=== PATIENT | male | born 1995 | race African-American/Black ===

== ENCOUNTER 2017-04-01 11:46 | Inpatient (IN) | payer MEDICAID ==
[~2017-04-01] VITALS: Ht 175.3 cm; Wt 58.0 kg
[~2017-04-01 11:46] MED LIST: ASPI-496 PO; ATOR20TA PO; CARV12.52 PO; CARV3.1212 PO; FERR325T20 PO; FURO20TA3 PO; LISI2.5T PO; OMEP-110 PO; RIVA20TA PO; SPIR25TA3 PO; THIA100T10 PO; [UNRECOGNIZED DRUG - CODE] IV
[2017-04-01] MEDS ORDERED: ASPIRIN 81 MG TABLET CHEW ONE (13:20)
[2017-04-01] MEDS ORDERED: ASPIRIN 81 MG TABLET CHEW PO ONE (13:30)
[2017-04-01] MEDS ORDERED: SODIUM CHLORIDE FLUSH 10ML SYR IVF ONE (13:30)
[2017-04-01] MEDS ORDERED: MILR20PI IV (13:51)
[2017-04-01] MEDS ORDERED: POTA10CA PO (13:51)
[2017-04-01] MEDS ORDERED: SPIR100T2 PO (13:51)
[2017-04-01 14:35] LABS: ASPARTATE AMINO TRANSFERASE 56 U/L (15-37); BLOOD UREA NITROGEN 70 mg/dL (7-18)
[2017-04-01 14:44] LABS: ANISOCYTOSIS 1+; MICROCYTOSIS 1+
[2017-04-01 14:45] LABS: IS PT STATUS REG ER OR PRE ER? YES
[2017-04-01 14:46] LABS: OVALOCYTES 1+; POIKILOCYTOSIS 1+; POLYCHROMASIA 1+; TARGET CELLS 1+
[2017-04-01 15:52] VITALS: BP 95/60
[2017-04-01] MEDS ORDERED: PHARMACY MAY ADJ FOR RENAL FX MC PRN (16:00)
[2017-04-01] MEDS ORDERED: VANCOMYCIN PER PHARMACY MC PRN (16:00)
[2017-04-01] MEDS ORDERED: TEMAZEPAM 15 MG CAPSULE PO PRN (16:30)
[2017-04-01] MEDS ORDERED: VANCOMYCIN 1,500 MG in SODIUM CHLORIDE 0.9% 250 ML IV ONE (16:30)
[2017-04-01] MEDS ORDERED: PHARMACOKINETIC MONITORING MC PRN (16:30)
[2017-04-01] MEDS ORDERED: LORazepam 2 MG/ML, 1ML IVPush PRN (16:30)
[2017-04-01] MEDS ORDERED: DOCUSATE 100 MG CAPSULE PO PRN (16:30)
[2017-04-01] MEDS ORDERED: PHARMACOKINETIC CONSULTATION MC ONE (16:30)
[2017-04-01] MEDS ORDERED: ACETAMINOPHEN 325 MG TABLET PO PRN (16:30)
[2017-04-01] MEDS ORDERED: PHARMACY INSTRUCTION MC PRN (18:00)
[2017-04-01 19:58] VITALS: BP 95/67
[2017-04-01] MEDS: DOBUTAMINE/D5W PMX 250 ML IV SCH (20:20)
[2017-04-01] MEDS: ONDANSETRON 2MG/ML, 2ML IVPush PRN (20:20)
[2017-04-01] MEDS: morphine SULFATE 10 MG/ML, 1ML IVPush PRN (20:31)
[2017-04-01 21:05] LABS: IS PT STATUS REG ER OR PRE ER? NO
[2017-04-02 01:58] VITALS: BP 105/69
[2017-04-02 03:08] LABS: ASPARTATE AMINO TRANSFERASE 43 U/L (15-37); BLOOD UREA NITROGEN 70 mg/dL (7-18)
[2017-04-02 03:12] LABS: IS PT STATUS REG ER OR PRE ER? NO
[2017-04-02] MEDS ORDERED: METOLAZONE 2.5 MG TABLET PO SCH (07:30)
[2017-04-02 07:50] VITALS: BP 93/66
[2017-04-02] MEDS ORDERED: RIVAROXABAN 15 MG TABLET PO SCH (09:00)
[2017-04-02] MEDS ORDERED: POTASSIUM CHLORIDE 20 MEQ TAB.ER.PRT PO ONE (09:00)
[2017-04-02] MEDS ORDERED: RIVAROXABAN 20 MG TABLET PO SCH (09:00)
[2017-04-02] MEDS ORDERED: FUROSEMIDE 100 MG/10 ML IV ONE (09:00)
[2017-04-02 09:44] VITALS: BP 124/78
[2017-04-02] MEDS: FUROSEMIDE 20 MG/2 ML IV SCH (10:00)
[2017-04-02] MEDS: ONDANSETRON 2MG/ML, 2ML IVPush PRN ×2 (11:14→17:49)
[2017-04-02] MEDS: morphine SULFATE 10 MG/ML, 1ML IVPush PRN (11:18)
[2017-04-02 11:19] VITALS: BP 100/70
[2017-04-02] MEDS: DOBUTAMINE/D5W PMX 250 ML IV SCH (12:40)
[2017-04-02 13:44] VITALS: BP 101/71
[2017-04-02] MEDS: RIVAROXABAN 10 MG TABLET PO SCH (17:44)
[2017-04-02 19:00] VITALS: BP 98/66
[2017-04-03] MEDS: morphine SULFATE 10 MG/ML, 1ML IVPush PRN ×3 (00:43→22:32)
[2017-04-03 02:19] VITALS: BP 101/71
[2017-04-03 06:49] LABS: ASPARTATE AMINO TRANSFERASE 40 U/L (15-37); BLOOD UREA NITROGEN 81 mg/dL (7-18); TOTAL IRON BINDING CAPACITY 286 mcg/dL (250-450)
[2017-04-03 06:52] VITALS: BP 103/73
[2017-04-03] MEDS: DOBUTAMINE/D5W PMX 250 ML IV SCH (07:57)
[2017-04-03] MEDS: METOLAZONE 5 MG TABLET PO SCH (07:58)
[2017-04-03] MEDS: FUROSEMIDE 20 MG/2 ML IV SCH ×4 (09:00→22:21)
[2017-04-03] MEDS: ALBUMIN HUMAN 25% 100 ML IV SCH ×3 (09:54→22:00)
[2017-04-03] MEDS: MULTIVITAMINS WITH IRON TABLET PO SCH (09:54)
[2017-04-03] MEDS: IRON SUCROSE COMPLEX 100MG/5ML IV SCH (09:54)
[2017-04-03] MEDS ORDERED: FUROSEMIDE 40 MG/4 ML IV ONE (11:00)
[2017-04-03 13:38] VITALS: BP 98/66
[2017-04-03] MEDS: RIVAROXABAN 10 MG TABLET PO SCH (17:28)
[2017-04-03 19:25] VITALS: BP 96/67
[2017-04-04 01:02] VITALS: BP 96/67
[2017-04-04] MEDS: DOBUTAMINE/D5W PMX 250 ML IV SCH ×2 (02:53→23:19)
[2017-04-04] MEDS: ALBUMIN HUMAN 25% 100 ML IV SCH (02:53)
[2017-04-04 07:13] VITALS: BP 105/73
[2017-04-04] MEDS: morphine SULFATE 10 MG/ML, 1ML IVPush PRN ×4 (08:15→23:30)
[2017-04-04] MEDS: MULTIVITAMINS WITH IRON TABLET PO SCH (08:16)
[2017-04-04] MEDS: METOLAZONE 5 MG TABLET PO SCH (08:16)
[2017-04-04] MEDS: FUROSEMIDE 20 MG/2 ML IV SCH ×2 (08:17→20:54)
[2017-04-04] MEDS: IRON SUCROSE COMPLEX 100MG/5ML IV SCH (08:17)
[2017-04-04] MEDS: LINEZOLID PMX 600MG/300ML 300 ML IV SCH (12:04)
[2017-04-04 13:18] VITALS: BP 108/74
[2017-04-04] MEDS: RIVAROXABAN 10 MG TABLET PO SCH (16:28)
[2017-04-04 19:16] VITALS: BP 101/69
[2017-04-05 00:43] VITALS: BP 104/70
[2017-04-05] MEDS: LINEZOLID PMX 600MG/300ML 300 ML IV SCH ×2 (02:09→12:45)
[2017-04-05] MEDS: morphine SULFATE 10 MG/ML, 1ML IVPush PRN ×3 (02:14→22:07)
[2017-04-05 06:22] LABS: BLOOD UREA NITROGEN 85 mg/dL (7-18)
[2017-04-05 06:25] LABS: BLOOD UREA NITROGEN 85 mg/dL (7-18)
[2017-04-05 07:10] VITALS: BP 103/68
[2017-04-05 07:32] LABS: DIFF TOTAL CELLS COUNTED 100 CELL DIFF
[2017-04-05 07:48] LABS: VERIFY COUNTS? YES
[2017-04-05 07:49] LABS: ANISOCYTOSIS 1+; MICROCYTOSIS 2+; OVALOCYTES 1+; POIKILOCYTOSIS 1+; POLYCHROMASIA 1+
[2017-04-05] MEDS: METOLAZONE 5 MG TABLET PO SCH (08:45)
[2017-04-05] MEDS: IRON SUCROSE COMPLEX 100MG/5ML IV SCH (08:46)
[2017-04-05] MEDS: MULTIVITAMINS WITH IRON TABLET PO SCH (08:46)
[2017-04-05] MEDS: FUROSEMIDE 20 MG/2 ML IV SCH ×2 (08:46→22:58)
[2017-04-05 14:38] VITALS: BP 91/63
[2017-04-05] MEDS: DOBUTAMINE/D5W PMX 250 ML IV SCH (18:37)
[2017-04-05 18:54] VITALS: BP 101/69
[2017-04-05] MEDS: RIVAROXABAN 10 MG TABLET PO SCH (22:05)
[2017-04-05] MEDS ORDERED: POTASSIUM CHLORIDE 10% 40 MEQ/30 ML UDC PO ONE (23:00)
[2017-04-06] MEDS: LINEZOLID PMX 600MG/300ML 300 ML IV SCH ×2 (00:28→12:30)
[2017-04-06 02:13] VITALS: BP 86/42
[2017-04-06 02:31] VITALS: BP 96/59
[2017-04-06 05:50] LABS: BLOOD UREA NITROGEN 85 mg/dL (7-18)
[2017-04-06 06:24] LABS: DIFF TOTAL CELLS COUNTED 100 CELL DIFF
[2017-04-06 06:26] LABS: ANISOCYTOSIS 1+; MICROCYTOSIS 2+; POLYCHROMASIA 1+; TARGET CELLS 1+; VERIFY COUNTS? YES
[2017-04-06 06:27] LABS: ECHINOCYTES 1+
[2017-04-06 06:28] LABS: OVALOCYTES 1+
[2017-04-06 06:31] LABS: SCHISTOCYTES 1+
[2017-04-06] MEDS: morphine SULFATE 10 MG/ML, 1ML IVPush PRN ×4 (06:36→21:16)
[2017-04-06 08:02] VITALS: BP 95/66
[2017-04-06] MEDS: METOLAZONE 5 MG TABLET PO SCH (09:50)
[2017-04-06] MEDS: MULTIVITAMINS WITH IRON TABLET PO SCH (09:51)
[2017-04-06] MEDS: IRON SUCROSE COMPLEX 100MG/5ML IV SCH (09:54)
[2017-04-06] MEDS: FUROSEMIDE 20 MG/2 ML IV SCH ×2 (10:15→21:05)
[2017-04-06] MEDS ORDERED: POLYETHYLENE GLYCOL 17 GM PACKET NG ONE (10:30)
[2017-04-06] MEDS: DOBUTAMINE/D5W PMX 250 ML IV SCH (11:16)
[2017-04-06 14:24] VITALS: BP 101/67
[2017-04-06] MEDS: RIVAROXABAN 10 MG TABLET PO SCH (18:01)
[2017-04-06 20:54] VITALS: BP 101/61
[2017-04-07] MEDS: LINEZOLID PMX 600MG/300ML 300 ML IV SCH ×2 (00:37→12:30)
[2017-04-07 02:58] VITALS: BP 91/61
[2017-04-07] MEDS: DOBUTAMINE/D5W PMX 250 ML IV SCH ×2 (04:36→22:28)
[2017-04-07] MEDS: METOLAZONE 5 MG TABLET PO SCH (07:30)
[2017-04-07 07:48] LABS: BLOOD UREA NITROGEN 86 mg/dL (7-18)
[2017-04-07] MEDS: MULTIVITAMINS WITH IRON TABLET PO SCH (09:00)
[2017-04-07] MEDS: FUROSEMIDE 20 MG/2 ML IV SCH ×2 (09:00→21:00)
[2017-04-07] MEDS: morphine SULFATE 10 MG/ML, 1ML IVPush PRN ×2 (15:27→23:02)
[2017-04-07] MEDS: RIVAROXABAN 10 MG TABLET PO SCH (17:00)
[2017-04-07] MEDS ORDERED: POTASSIUM CHLORIDE 10% 40 MEQ/30 ML UDC PO ONE (21:30)
[2017-04-08] MEDS: LINEZOLID PMX 600MG/300ML 300 ML IV SCH ×2 (00:30→18:11)
[2017-04-08] MEDS: morphine SULFATE 10 MG/ML, 1ML IVPush PRN ×4 (05:20→22:11)
[2017-04-08] MEDS: METOLAZONE 5 MG TABLET PO SCH (07:30)
[2017-04-08 08:20] VITALS: BP 92/63
[2017-04-08] MEDS: FUROSEMIDE 20 MG/2 ML IV SCH ×2 (09:00→22:05)
[2017-04-08] MEDS: MULTIVITAMINS WITH IRON TABLET PO SCH (09:00)
[2017-04-08] MEDS ORDERED: FUROSEMIDE 20 MG/2 ML IV ONE (09:00)
[2017-04-08] MEDS: POTASSIUM CHLORIDE 20 MEQ TAB.ER.PRT PO SCH ×3 (12:30→22:38)
[2017-04-08] MEDS ORDERED: POTASSIUM CHLORIDE 20 MEQ TAB.ER.PRT ONE (14:10)
[2017-04-08 16:25] VITALS: BP 100/65
[2017-04-08] MEDS: RIVAROXABAN 10 MG TABLET PO SCH (18:12)
[2017-04-08 20:40] VITALS: BP 103/62
[2017-04-08] MEDS: DOBUTAMINE/D5W PMX 250 ML IV SCH (22:06)
[2017-04-08] MEDS ORDERED: POTASSIUM CHLORIDE 20 MEQ PACKET PO ONE (23:00)
[2017-04-09] MEDS: morphine SULFATE 10 MG/ML, 1ML IVPush PRN ×5 (01:30→22:14)
[2017-04-09 02:00] VITALS: BP 128/88
[2017-04-09] MEDS: LINEZOLID PMX 600MG/300ML 300 ML IV SCH ×2 (05:27→16:41)
[2017-04-09 07:31] VITALS: BP 100/67
[2017-04-09 08:10] LABS: BLOOD UREA NITROGEN 92 mg/dL (7-18)
[2017-04-09] MEDS ORDERED: POTASSIUM CHLORIDE 20 MEQ TAB.ER.PRT PO SCH ×2 (09:00→09:30)
[2017-04-09] MEDS: MULTIVITAMINS WITH IRON TABLET PO SCH (09:30)
[2017-04-09 09:58] LABS: DIFF TOTAL CELLS COUNTED 100 CELL DIFF
[2017-04-09] MEDS ORDERED: POTASSIUM CHLORIDE 20 MEQ TAB.ER.PRT PO ONE (10:00)
[2017-04-09 10:02] LABS: VERIFY COUNTS? YES
[2017-04-09 10:03] LABS: ANISOCYTOSIS 2+; HYPOCHROMIA 2+; MICROCYTOSIS 1+; POLYCHROMASIA 2+; TARGET CELLS 2+
[2017-04-09 10:04] LABS: OVALOCYTES 1+; SCHISTOCYTES 1+
[2017-04-09] MEDS ORDERED: POTASSIUM CHLORIDE 20 MEQ PACKET PO SCH (10:24)
[2017-04-09] MEDS: FUROSEMIDE 20 MG/2 ML IV SCH ×2 (10:58→20:19)
[2017-04-09] MEDS: METOLAZONE 5 MG TABLET PO SCH (10:59)
[2017-04-09 11:25] LABS: DIFF TOTAL CELLS COUNTED 100 CELL DIFF
[2017-04-09 11:26] LABS: ANISOCYTOSIS 2+; HYPOCHROMIA 1+; MICROCYTOSIS 2+; OVALOCYTES 1+; TARGET CELLS 1+; VERIFY COUNTS? YES
[2017-04-09] MEDS: DOBUTAMINE/D5W PMX 250 ML IV SCH (13:17)
[2017-04-09 15:00] VITALS: BP 100/69
[2017-04-09] MEDS: POTASSIUM CHLORIDE 20 MEQ PACKET PO SCH ×2 (15:28→20:20)
[2017-04-09] MEDS: RIVAROXABAN 10 MG TABLET PO SCH (16:41)
[2017-04-09 19:21] VITALS: BP 94/64
[2017-04-09] MEDS ORDERED: SPIRONOLACTONE 25 MG TABLET PO SCH (21:00)
[2017-04-09 22:10] VITALS: BP 101/64
[2017-04-10 01:52] VITALS: BP 109/71
[2017-04-10] MEDS: morphine SULFATE 10 MG/ML, 1ML IVPush PRN ×5 (02:59→20:41)
[2017-04-10] MEDS: LINEZOLID PMX 600MG/300ML 300 ML IV SCH ×2 (05:03→16:40)
[2017-04-10 06:34] LABS: DIFF TOTAL CELLS COUNTED 200 CELL DIFF; VERIFY COUNTS? YES
[2017-04-10 06:35] LABS: ANISOCYTOSIS 2+; HYPOCHROMIA 1+; MICROCYTOSIS 1+
[2017-04-10 06:36] LABS: OVALOCYTES 1+; POLYCHROMASIA 1+; TARGET CELLS 1+
[2017-04-10 07:15] LABS: BLOOD UREA NITROGEN 86 mg/dL (7-18)
[2017-04-10 07:19] LABS: ASPARTATE AMINO TRANSFERASE 40 U/L (15-37)
[2017-04-10] MEDS: METOLAZONE 5 MG TABLET PO SCH (07:46)
[2017-04-10] MEDS: FUROSEMIDE 20 MG/2 ML IV SCH ×2 (07:46→20:35)
[2017-04-10] MEDS: POTASSIUM CHLORIDE 20 MEQ PACKET PO SCH ×3 (07:46→21:57)
[2017-04-10] MEDS: MULTIVITAMINS WITH IRON TABLET PO SCH (07:46)
[2017-04-10 07:51] VITALS: BP 99/64
[2017-04-10] MEDS ORDERED: METHYLNALTREXONE 12 MG/0.6 ML SQ ONE (08:00)
[2017-04-10] MEDS ORDERED: MAGNESIUM SULFATE PMX 2GM/50ML 50 ML IV ONE (08:00)
[2017-04-10] MEDS: SPIRONOLACTONE 50 MG TABLET PO SCH (09:00)
[2017-04-10] MEDS: DOBUTAMINE/D5W PMX 250 ML IV SCH (09:01)
[2017-04-10] MEDS: DEXTROSE 5% IV SCH (10:44)
[2017-04-10] MEDS: DOBUTAMINE IV SCH (10:44)
[2017-04-10 11:35] LABS: ASPARTATE AMINO TRANSFERASE 33 U/L (15-37); BLOOD UREA NITROGEN 92 mg/dL (7-18)
[2017-04-10 14:50] VITALS: BP 100/69
[2017-04-10] MEDS: RIVAROXABAN 10 MG TABLET PO SCH (17:59)
[2017-04-10 18:52] VITALS: BP 91/65
[2017-04-10 21:07] LABS: ANISOCYTOSIS 2+; POLYCHROMASIA 2+
[2017-04-10 21:08] LABS: TARGET CELLS 2+
[2017-04-10 21:14] LABS: DIFF TOTAL CELLS COUNTED 100 CELL DIFF
[2017-04-10 21:22] LABS: VERIFY COUNTS? YES
[2017-04-11 01:52] VITALS: BP 97/66
[2017-04-11] MEDS: morphine SULFATE 10 MG/ML, 1ML IVPush PRN ×5 (02:05→21:32)
[2017-04-11] MEDS: LINEZOLID PMX 600MG/300ML 300 ML IV SCH ×2 (05:07→18:03)
[2017-04-11 05:48] LABS: BLOOD UREA NITROGEN 85 mg/dL (7-18)
[2017-04-11 05:58] LABS: DIFF TOTAL CELLS COUNTED 100 CELL DIFF
[2017-04-11 06:01] LABS: ANISOCYTOSIS 2+; HYPOCHROMIA 1+; MICROCYTOSIS 1+; OVALOCYTES 1+; POLYCHROMASIA 1+
[2017-04-11 06:03] LABS: ECHINOCYTES 1+; VERIFY COUNTS? YES
[2017-04-11 06:05] LABS: TARGET CELLS 2+
[2017-04-11 07:25] VITALS: BP 99/64
[2017-04-11] MEDS: METOLAZONE 5 MG TABLET PO SCH (08:25)
[2017-04-11] MEDS: SPIRONOLACTONE 50 MG TABLET PO SCH (08:25)
[2017-04-11] MEDS: MULTIVITAMINS WITH IRON TABLET PO SCH (08:25)
[2017-04-11] MEDS: POTASSIUM CHLORIDE 20 MEQ TAB.ER.PRT PO SCH ×2 (11:00→11:24)
[2017-04-11] MEDS ORDERED: POLYETHYLENE GLYCOL 17 GM PACKET NG ONE (11:00)
[2017-04-11] MEDS: FUROSEMIDE 20 MG/2 ML IV SCH ×2 (11:24→21:07)
[2017-04-11] MEDS: POTASSIUM CHLORIDE 20 MEQ PACKET PO SCH ×3 (12:10→21:05)
[2017-04-11 14:52] VITALS: BP 100/68
[2017-04-11] MEDS: RIVAROXABAN 10 MG TABLET PO SCH (18:03)
[2017-04-11 19:25] VITALS: BP 96/63
[2017-04-11 21:34] VITALS: BP 98/67
[2017-04-11] MEDS: DOBUTAMINE IV SCH (22:51)
[2017-04-11] MEDS: DEXTROSE 5% IV SCH (22:51)
[2017-04-12 01:41] VITALS: BP 95/64
[2017-04-12] MEDS: morphine SULFATE 10 MG/ML, 1ML IVPush PRN ×3 (02:00→21:21)
[2017-04-12] MEDS: LINEZOLID PMX 600MG/300ML 300 ML IV SCH ×2 (04:51→17:03)
[2017-04-12 05:46] LABS: BLOOD UREA NITROGEN 84 mg/dL (7-18)
[2017-04-12 06:27] LABS: ANISOCYTOSIS 2+; MICROCYTOSIS 1+; TARGET CELLS 3+
[2017-04-12 06:28] LABS: HYPOCHROMIA 1+; SPHEROCYTES 1+
[2017-04-12 06:29] LABS: ECHINOCYTES 1+; SCHISTOCYTES 1+
[2017-04-12 07:45] VITALS: BP 94/58
[2017-04-12] MEDS: SPIRONOLACTONE 50 MG TABLET PO SCH (08:24)
[2017-04-12] MEDS: METOLAZONE 5 MG TABLET PO SCH (08:24)
[2017-04-12] MEDS: FUROSEMIDE 20 MG/2 ML IV SCH ×2 (08:25→21:22)
[2017-04-12] MEDS: POTASSIUM CHLORIDE 20 MEQ PACKET PO SCH ×4 (08:25→21:35)
[2017-04-12] MEDS: MULTIVITAMINS WITH IRON TABLET PO SCH (08:25)
[2017-04-12] MEDS ORDERED: MAGNESIUM SULFATE PMX 2GM/50ML 50 ML IV ONE (11:00)
[2017-04-12] MEDS ORDERED: POTASSIUM CHLORIDE 20 MEQ TAB.ER.PRT PO ONE (11:00)
[2017-04-12] MEDS ORDERED: morphine SULFATE ORAL.CONC 20 MG/ML PO PRN (11:30)
[2017-04-12 14:39] VITALS: BP 100/64
[2017-04-12] MEDS: RIVAROXABAN 10 MG TABLET PO SCH (17:03)
[2017-04-12 18:29] VITALS: BP 94/65
[2017-04-12 18:59] LABS: BLOOD UREA NITROGEN 82 mg/dL (7-18)
[2017-04-12] MEDS ORDERED: POTASSIUM CHLORIDE 20 MEQ PACKET PO ONE (20:00)
[2017-04-12] MEDS: DOBUTAMINE IV SCH (23:23)
[2017-04-12] MEDS: DEXTROSE 5% IV SCH (23:23)
[2017-04-13 01:32] VITALS: BP 93/63
[2017-04-13] MEDS: morphine SULFATE 10 MG/ML, 1ML IVPush PRN ×5 (02:09→22:27)
[2017-04-13] MEDS: LINEZOLID PMX 600MG/300ML 300 ML IV SCH (05:02)
[2017-04-13 05:29] LABS: BLOOD UREA NITROGEN 80 mg/dL (7-18)
[2017-04-13] MEDS: FUROSEMIDE 20 MG/2 ML IV SCH ×2 (08:33→21:47)
[2017-04-13] MEDS: MULTIVITAMINS WITH IRON TABLET PO SCH (08:33)
[2017-04-13] MEDS: SPIRONOLACTONE 50 MG TABLET PO SCH (08:34)
[2017-04-13] MEDS: POTASSIUM CHLORIDE 20 MEQ PACKET PO SCH ×4 (08:34→21:00)
[2017-04-13] MEDS: METOLAZONE 5 MG TABLET PO SCH (08:34)
[2017-04-13 08:44] VITALS: BP 97/67
[2017-04-13 14:20] VITALS: BP 104/73
[2017-04-13] MEDS: RIVAROXABAN 20 MG TABLET PO SCH (17:27)
[2017-04-13 19:58] VITALS: BP 90/63
[2017-04-13] MEDS ORDERED: LINEZOLID 600 MG TABLET PO SCH (21:00)
[2017-04-13] MEDS: DEXTROSE 5% IV SCH (22:27)
[2017-04-13] MEDS: DOBUTAMINE IV SCH (22:27)
[2017-04-13] MEDS ORDERED: POTASSIUM CHLORIDE PMX 100 ML IV ONE (23:00)
[2017-04-14] MEDS: LINEZOLID PMX 600MG/300ML 300 ML IV SCH ×2 (01:13→13:12)
[2017-04-14 01:54] VITALS: BP 93/58
[2017-04-14] MEDS: morphine SULFATE 10 MG/ML, 1ML IVPush PRN ×7 (02:24→23:23)
[2017-04-14] MEDS: POTASSIUM CHLORIDE 20 MEQ PACKET PO SCH ×4 (05:52→20:23)
[2017-04-14 06:11] LABS: BLOOD UREA NITROGEN 76 mg/dL (7-18)
[2017-04-14] MEDS ORDERED: MAGNESIUM SULFATE PMX 2GM/50ML 50 ML IV ONE (07:30)
[2017-04-14] MEDS ORDERED: POTASSIUM CHLORIDE 40 MEQ in SODIUM CHLORIDE 0.9% 100 ML IV ONE ×2 (08:30→22:00)
[2017-04-14 09:06] VITALS: BP 94/63
[2017-04-14] MEDS: METOLAZONE 5 MG TABLET PO SCH (09:22)
[2017-04-14] MEDS: SPIRONOLACTONE 50 MG TABLET PO SCH (09:22)
[2017-04-14] MEDS: FUROSEMIDE 20 MG/2 ML IV SCH ×2 (09:23→20:24)
[2017-04-14] MEDS: MULTIVITAMINS WITH IRON TABLET PO SCH (09:23)
[2017-04-14] MEDS ORDERED: DEXTROSE 5% IV SCH (10:00)
[2017-04-14] MEDS ORDERED: DOBUTAMINE IV SCH (10:00)
[2017-04-14] MEDS: ONDANSETRON 2MG/ML, 2ML IVPush PRN ×2 (12:38→23:25)
[2017-04-14 14:20] VITALS: BP 90/60
[2017-04-14] MEDS ORDERED: COQ PO SCH (17:00)
[2017-04-14] MEDS: RIVAROXABAN 20 MG TABLET PO SCH (17:20)
[2017-04-14] MEDS: ENALAPRIL 2.5MG TABLET PO SCH (20:24)
[2017-04-14 21:00] VITALS: BP 91/60
[2017-04-14] MEDS ORDERED: HAWTHORN PO SCH (21:00)
[2017-04-15 01:00] VITALS: BP 90/55
[2017-04-15] MEDS: LINEZOLID PMX 600MG/300ML 300 ML IV SCH ×2 (02:27→14:59)
[2017-04-15] MEDS: morphine SULFATE 10 MG/ML, 1ML IVPush PRN ×5 (02:27→21:17)
[2017-04-15] MEDS: POTASSIUM CHLORIDE 20 MEQ PACKET PO SCH ×2 (05:20→08:12)
[2017-04-15] MEDS ORDERED: DEXTROSE 50%, 50ML SYRINGE ONE (06:34)
[2017-04-15] MEDS ORDERED: DEXTROSE 50%, 50ML SYRINGE IVPush ONE (07:00)
[2017-04-15 07:29] LABS: BLOOD UREA NITROGEN 84 mg/dL (7-18)
[2017-04-15] MEDS: SPIRONOLACTONE 50 MG TABLET PO SCH (08:10)
[2017-04-15] MEDS: ENALAPRIL 2.5MG TABLET PO SCH ×2 (08:10→20:28)
[2017-04-15] MEDS: MULTIVITAMINS WITH IRON TABLET PO SCH (08:10)
[2017-04-15] MEDS: METOLAZONE 5 MG TABLET PO SCH (08:11)
[2017-04-15] MEDS: FUROSEMIDE 20 MG/2 ML IV SCH ×2 (08:12→20:28)
[2017-04-15 08:14] VITALS: BP 89/55
[2017-04-15] MEDS ORDERED: DEXTROSE 5% IV SCH (10:00)
[2017-04-15] MEDS ORDERED: DOBUTAMINE IV SCH (10:00)
[2017-04-15] MEDS ORDERED: CATHFLO-ALTEPLASE 2 MG/2 ML CATHFLUSH ONE (15:30)
[2017-04-15] MEDS ORDERED: DIGOXIN 0.25 MG/ML, 2ML IVPush ONE (15:30)
[2017-04-15 15:35] LABS: BLOOD UREA NITROGEN 80 mg/dL (7-18)
[2017-04-15 15:52] VITALS: BP 90/56
[2017-04-15 20:00] VITALS: BP 93/58
[2017-04-16 01:06] VITALS: BP 98/65
[2017-04-16] MEDS: LINEZOLID PMX 600MG/300ML 300 ML IV SCH ×2 (01:12→13:02)
[2017-04-16] MEDS: morphine SULFATE 10 MG/ML, 1ML IVPush PRN ×3 (01:29→08:00)
[2017-04-16 05:19] LABS: BLOOD UREA NITROGEN 83 mg/dL (7-18)
[2017-04-16 07:43] VITALS: BP 95/59
[2017-04-16] MEDS: SPIRONOLACTONE 50 MG TABLET PO SCH (08:01)
[2017-04-16] MEDS: MULTIVITAMINS WITH IRON TABLET PO SCH (08:01)
[2017-04-16] MEDS: FUROSEMIDE 20 MG/2 ML IV SCH ×2 (08:02→22:18)
[2017-04-16] MEDS: METOLAZONE 5 MG TABLET PO SCH (08:02)
[2017-04-16] MEDS: DIGOXIN 0.125 MG TABLET PO SCH (08:02)
[2017-04-16] MEDS: ENALAPRIL 2.5MG TABLET PO SCH ×2 (08:02→21:00)
[2017-04-16] MEDS ORDERED: POTASSIUM CHLORIDE 20 MEQ PACKET PO ONE (09:30)
[2017-04-16] MEDS ORDERED: DOBUTAMINE IV SCH (10:00)
[2017-04-16] MEDS ORDERED: DEXTROSE 5% IV SCH (10:00)
[2017-04-16 13:12] VITALS: BP 95/56
[2017-04-16 18:39] VITALS: BP 94/61
[2017-04-16 20:20] VITALS: BP 90/60
[2017-04-16] MEDS: HYDROcodone/APAP 5/325 TABLET PO PRN (23:44)
[2017-04-17 00:56] VITALS: BP 97/62
[2017-04-17] MEDS: LINEZOLID PMX 600MG/300ML 300 ML IV SCH ×2 (03:02→13:46)
[2017-04-17 07:09] LABS: BLOOD UREA NITROGEN 64 mg/dL (7-18)
[2017-04-17 07:11] VITALS: BP 115/73
[2017-04-17 08:14] LABS: ANISOCYTOSIS 2+; HYPOCHROMIA 1+; MICROCYTOSIS 1+; OVALOCYTES 1+; POIKILOCYTOSIS 2+; SCHISTOCYTES 1+; TARGET CELLS 2+
[2017-04-17] MEDS: SPIRONOLACTONE 50 MG TABLET PO SCH (09:04)
[2017-04-17] MEDS: FUROSEMIDE 20 MG/2 ML IV SCH ×2 (09:04→20:33)
[2017-04-17] MEDS: ENALAPRIL 2.5MG TABLET PO SCH ×2 (09:04→20:34)
[2017-04-17] MEDS: DIGOXIN 0.125 MG TABLET PO SCH (09:05)
[2017-04-17] MEDS: MULTIVITAMINS WITH IRON TABLET PO SCH (09:05)
[2017-04-17] MEDS: METOLAZONE 5 MG TABLET PO SCH (10:05)
[2017-04-17 15:00] VITALS: BP 83/52
[2017-04-17] MEDS ORDERED: POTASSIUM CHLORIDE 20 MEQ PACKET PO ONE (15:00)
[2017-04-17 18:18] VITALS: BP 96/54
[2017-04-17 20:29] VITALS: BP 94/60
[2017-04-17] MEDS: POTASSIUM CHLORIDE 20 MEQ PACKET PO SCH (20:33)
[2017-04-18] VITALS (8 sets, daily range): BP systolic 82–93; BP diastolic 51–82
[2017-04-18] MEDS: LINEZOLID PMX 600MG/300ML 300 ML IV SCH ×2 (03:10→15:00)
[2017-04-18 03:35] LABS: BLOOD UREA NITROGEN 57 mg/dL (7-18)
[2017-04-18 03:37] LABS: DIFF TOTAL CELLS COUNTED 100 CELL DIFF
[2017-04-18 03:41] LABS: ANISOCYTOSIS 2+; HYPOCHROMIA 1+; MICROCYTOSIS 1+; OVALOCYTES 1+; POIKILOCYTOSIS 1+; SCHISTOCYTES 1+; TARGET CELLS 2+; VERIFY COUNTS? YES
[2017-04-18 03:42] LABS: LARGE PLATELETS 1+
[2017-04-18] MEDS ORDERED: POTASSIUM CHLORIDE 40 MEQ in SODIUM CHLORIDE 0.9% 500 ML IV ONE (05:00)
[2017-04-18] MEDS ORDERED: POTASSIUM CHLORIDE 40 MEQ in SODIUM CHLORIDE 0.9% 100 ML IV ONE ×2 (05:00→20:30)
[2017-04-18] MEDS: DIGOXIN 0.125 MG TABLET PO SCH ×2 (08:40→10:55)
[2017-04-18] MEDS: ENALAPRIL 2.5MG TABLET PO SCH ×2 (08:40→20:49)
[2017-04-18] MEDS: MULTIVITAMINS WITH IRON TABLET PO SCH ×2 (08:40→10:55)
[2017-04-18] MEDS: POTASSIUM CHLORIDE 20 MEQ PACKET PO SCH (08:41)
[2017-04-18] MEDS: FUROSEMIDE 20 MG/2 ML IV SCH (08:48)
[2017-04-18] MEDS ORDERED: DOBUTAMINE IV SCH (08:56)
[2017-04-18] MEDS ORDERED: DEXTROSE 5% IV SCH (08:56)
[2017-04-18] MEDS: SPIRONOLACTONE 50 MG TABLET PO SCH (10:55)
[2017-04-18] MEDS ORDERED: SODIUM CHLORIDE 0.9%, 250ML IVBOLUS ONE (13:30)
[2017-04-18] MEDS ORDERED: POTASSIUM CHLORIDE 20 MEQ TAB.ER.PRT PO SCH (16:00)
[2017-04-18] MEDS: POTASSIUM CHLORIDE 20 MEQ TAB.ER.PRT PO SCH ×2 (19:55→19:57)
[2017-04-18] MEDS ORDERED: FUROSEMIDE 20 MG/2 ML IV SCH ×2 (21:00)
[2017-04-19] VITALS (7 sets, daily range): BP systolic 82–91; BP diastolic 56–61
[2017-04-19] MEDS: LINEZOLID PMX 600MG/300ML 300 ML IV SCH (02:38)
[2017-04-19] MEDS: HYDROcodone/APAP 5/325 TABLET PO PRN (02:56)
[2017-04-19 06:09] LABS: BLOOD UREA NITROGEN 50 mg/dL (7-18)
[2017-04-19] MEDS ORDERED: DEXTROSE 5% IV SCH (08:56)
[2017-04-19] MEDS ORDERED: DOBUTAMINE IV SCH (08:56)
[2017-04-19] MEDS: SPIRONOLACTONE 50 MG TABLET PO SCH ×2 (09:00→10:37)
[2017-04-19] MEDS: POTASSIUM CHLORIDE 20 MEQ TAB.ER.PRT PO SCH ×3 (09:00→20:36)
[2017-04-19] MEDS: MULTIVITAMINS WITH IRON TABLET PO SCH ×2 (09:00→10:37)
[2017-04-19] MEDS: ENALAPRIL 2.5MG TABLET PO SCH ×2 (09:00→19:21)
[2017-04-19] MEDS: FUROSEMIDE 40 MG TABLET PO SCH ×4 (09:00→21:08)
[2017-04-19] MEDS: DIGOXIN 0.125 MG TABLET PO SCH ×3 (09:00→21:08)
[2017-04-19] MEDS ORDERED: POTASSIUM CHLORIDE PMX 100 ML IV ONE (21:00)
[2017-04-20] VITALS (7 sets, daily range): BP systolic 84–95; BP diastolic 56–65
[2017-04-20] MEDS: HYDROcodone/APAP 5/325 TABLET PO PRN (03:00)
[2017-04-20 06:00] LABS: BLOOD UREA NITROGEN 43 mg/dL (7-18)
[2017-04-20 06:44] LABS: DIFF TOTAL CELLS COUNTED 100 CELL DIFF
[2017-04-20 06:51] LABS: ANISOCYTOSIS 2+; HYPOCHROMIA 2+; MICROCYTOSIS 2+; OVALOCYTES 1+; POIKILOCYTOSIS 2+; TARGET CELLS 2+; VERIFY COUNTS? YES
[2017-04-20] MEDS ORDERED: DEXTROSE 5% IV SCH ×2 (08:56)
[2017-04-20] MEDS ORDERED: DOBUTAMINE IV SCH ×2 (08:56)
[2017-04-20] MEDS ORDERED: POTASSIUM CHLORIDE 20 MEQ TAB.ER.PRT PO SCH (09:00)
[2017-04-20] MEDS: MULTIVITAMINS WITH IRON TABLET PO SCH (09:03)
[2017-04-20] MEDS: FUROSEMIDE 40 MG TABLET PO SCH ×2 (09:03→18:21)
[2017-04-20] MEDS: DIGOXIN 0.125 MG TABLET PO SCH (09:03)
[2017-04-20] MEDS: SPIRONOLACTONE 50 MG TABLET PO SCH (09:03)
[2017-04-20] MEDS ORDERED: DOBUTAMINE/D5W PMX 250 ML IV SCH (09:53)
[2017-04-20] MEDS: POTASSIUM CHLORIDE 10% 40 MEQ/30 ML UDC PO SCH ×4 (12:00→18:21)
[2017-04-20] MEDS: ONDANSETRON 2MG/ML, 2ML IVPush PRN (12:10)
[2017-04-20] MEDS ORDERED: SODIUM CHLORIDE 0.9%, 250ML IVBOLUS ONE (23:00)
[2017-04-21] VITALS (12 sets, daily range): BP systolic 70–93; BP diastolic 58–66
[2017-04-21 04:21] LABS: BLOOD UREA NITROGEN 40 mg/dL (7-18)
[2017-04-21 04:25] LABS: ASPARTATE AMINO TRANSFERASE 100 U/L (15-37)
[2017-04-21 05:02] LABS: ANISOCYTOSIS 2+; HYPOCHROMIA 2+; MICROCYTOSIS 2+; OVALOCYTES 1+; TARGET CELLS 1+
[2017-04-21] MEDS: SPIRONOLACTONE 50 MG TABLET PO SCH (08:12)
[2017-04-21] MEDS: POTASSIUM CHLORIDE 10% 40 MEQ/30 ML UDC PO SCH ×4 (08:12→18:04)
[2017-04-21] MEDS: DIGOXIN 0.125 MG TABLET PO SCH (08:12)
[2017-04-21] MEDS: MULTIVITAMINS WITH IRON TABLET PO SCH (08:12)
[2017-04-21] MEDS: FUROSEMIDE 40 MG TABLET PO SCH ×2 (08:12→18:04)
[2017-04-22 02:00] VITALS: BP 88/60
[2017-04-22 05:36] VITALS: BP 88/60
[2017-04-22 05:44] LABS: BLOOD UREA NITROGEN 37 mg/dL (7-18)
[2017-04-22] MEDS ORDERED: METOPROLOL SUCCINATE 25 MG TAB.ER.24H PO SCH (06:00)
[2017-04-22 06:45] LABS: ANISOCYTOSIS 2+
[2017-04-22 06:46] LABS: HYPOCHROMIA 1+; MICROCYTOSIS 2+; TARGET CELLS 1+
[2017-04-22 06:47] LABS: OVALOCYTES 1+
[2017-04-22 06:48] LABS: LARGE PLATELETS 1+
[2017-04-22 07:53] VITALS: BP 95/66
[2017-04-22] MEDS: DIGOXIN 0.125 MG TABLET PO SCH (07:55)
[2017-04-22] MEDS: POTASSIUM CHLORIDE 10% 40 MEQ/30 ML UDC PO SCH ×3 (07:55→17:38)
[2017-04-22] MEDS: SPIRONOLACTONE 50 MG TABLET PO SCH (10:05)
[2017-04-22] MEDS: MULTIVITAMINS WITH IRON TABLET PO SCH (10:05)
[2017-04-22] MEDS: FUROSEMIDE 40 MG TABLET PO SCH ×2 (10:05→17:38)
[2017-04-22] MEDS ORDERED: POTASSIUM CHLORIDE 40 MEQ in SODIUM CHLORIDE 0.9% 100 ML IV ONE (12:30)
[2017-04-22] MEDS ORDERED: POTASSIUM CHLORIDE 40 MEQ in SODIUM CHLORIDE 0.9% 500 ML IV ONE (12:30)
[2017-04-22 12:48] VITALS: BP 82/57
[2017-04-22] MEDS: ONDANSETRON 2MG/ML, 2ML IVPush PRN (12:55)
[2017-04-22 17:36] VITALS: BP 91/55
[2017-04-22 19:00] VITALS: BP 81/63
[2017-04-23 02:04] VITALS: BP 91/64
[2017-04-23] MEDS: HYDROcodone/APAP 5/325 TABLET PO PRN ×2 (02:09→08:56)
[2017-04-23] MEDS: POTASSIUM CHLORIDE 10% 40 MEQ/30 ML UDC PO SCH ×2 (08:00→12:00)
[2017-04-23] MEDS: FUROSEMIDE 40 MG TABLET PO SCH (08:00)
[2017-04-23 08:53] VITALS: BP 95/67
[2017-04-23] MEDS: SPIRONOLACTONE 50 MG TABLET PO SCH (09:00)
[2017-04-23] MEDS ORDERED: FURO40TA6 PO (10:43)
[2017-04-23] MEDS ORDERED: SPIR50TA PO (10:43)
[2017-04-23] MEDS ORDERED: HYDR-3240 PO (10:43)
[2017-04-23] MEDS ORDERED: POTA20TA14 PO (10:43)
[2017-04-29] MEDS ORDERED: DOBUTAMINE IV SCH ×3 (15:00)
[2017-04-29] MEDS ORDERED: DEXTROSE 5% IV SCH ×3 (15:00)
== END 2017-04-23 15:02 | disposition home health service (06) | DRG 291 ==
LOC: ED 14:05 → EDIP 14:22 → 5SO 15:10
DX: I13.0 Hypertensive heart and chronic kidney disease with heart failure and stage 1 through stage 4 chronic kidney disease, or unspecified chronic kidney disease (principal); I50.23 Acute on chronic systolic (congestive) heart failure; E43 Unspecified severe protein-calorie malnutrition; D68.9 Coagulation defect, unspecified; E87.1 Hypo-osmolality and hyponatremia; N17.9 Acute kidney failure, unspecified; N18.4 Chronic kidney disease, stage 4 (severe); T80.211A Bloodstream infection due to central venous catheter, initial encounter; Z68.1 Body mass index [BMI] 19.9 or less, adult; E87.3 Alkalosis; I42.9 Cardiomyopathy, unspecified; I27.2 Other secondary pulmonary hypertension; J45.909 Unspecified asthma, uncomplicated; E87.6 Hypokalemia; Z91.013 Allergy to seafood; Z86.718 Personal history of other venous thrombosis and embolism; Z79.01 Long term (current) use of anticoagulants; Z86.711 Personal history of pulmonary embolism; D69.6 Thrombocytopenia, unspecified; B95.62 Methicillin resistant Staphylococcus aureus infection as the cause of diseases classified elsewhere; D63.8 Anemia in other chronic diseases classified elsewhere; Z91.19 Patient's noncompliance with other medical treatment and regimen; T50.2X5A Adverse effect of carbonic-anhydrase inhibitors, benzothiadiazides and other diuretics, initial encounter; K76.9 Liver disease, unspecified; K59.00 Constipation, unspecified; Z51.5 Encounter for palliative care; Z66 Do not resuscitate
CPT/HCPCS: 36415; 71020; 76700; 80048; 80053; 80061; 80069; 80162; 80202; 81001; 82306; 82330; 82570; 82728; 82962; 83540; 83550; 83735; 83880; 83970; 84100; 84132; 84300; 84443; 84484; 84550; 85025; 85610; 85651; 85730; 86140; 87040; 87086; 93005; C8929; J1756; J1940; J2020; J2405; J2997; J3480; J7060; P9047; J1160; J1250; J2270; J3475; J7050